=== PATIENT | male | born 1970 | race Two or more races ===

== ENCOUNTER → 2025-03-05 | Outpatient (CLI) | payer BC, SELFPAY ==
--- NOTE | 2025-03-05 15:14 | EKG_ITS ---
[facility] Test Date: 2025-03-05 Pat Name: EJ ARMIJO Department: Room: - Gender: Male [employer]all[employer] Binder: MANUELITO : 1970 Requested By: Angus Angulo Order Number: [id number] Reading MD: Angus Angulo Measurements Intervals [place] Rate: 69 P: 47 AL: 185 QRS: -9 QRSD: 123 T: 29 QT: 417 QTc: 449 Interpretive Statements SINUS RHYTHM MODERATE INTRAVENTRICULAR CONDUCTION DELAY [110+ ms QRS DURATION] No previous ECG available for comparison /[email or web address]/[id number]
== END | disposition home or self-care (01) ==
LOC: SEKG 15:06
PROVIDERS: PCP Family Medicine; Referring Provider Family Medicine; Visit Provider Family Medicine
DX: R07.9 Chest pain, unspecified (principal)
CPT/HCPCS: 93005